=== PATIENT | male | born 1970 | race Caucasian/White ===

== ENCOUNTER → 2018-02-20 12:54 | Outpatient (CLI) | payer OTHER | END | disposition home or self-care (01) | LOC: D.RAD 12:54 | DX: Z02.71 Encounter for disability determination (principal) ==

== ENCOUNTER 2018-06-30 20:49 | Emergency (ER) | payer MEDICAID ==
[~2018-06-30] VITALS: Ht 182.9 cm; Wt 79.5 kg
[2018-06-30 20:55] VITALS: Ht 182.9 cm; Wt 79.5 kg
[2018-06-30 21:15] LABS: BASOPHILS 0.1 % (0-2); EOSINOPHILS 0.3 % (0-7); HEMATOCRIT 36.6 % (42.0-54.0); HEMOGLOBIN 12.7 g/dL (13.5-17.5); IMMATURE GRANULOCYTES 0.1 % (0-5); LYMPHOCYTES 9.3 % (15-50); MCH 31.3 pg (26.0-34.0); MCHC 34.7 g/dL (31.0-37.0); MCV 90.1 fL (80.0-100.0); MEAN PLATELET VOLUME 9.6 fL (7.4-10.4); MONOCYTES 5.4 % (2-11); NEUTROPHILS 84.8 % (40-80); PLATELET COUNT 272 10x3/uL (130-400); RBC 4.06 10x6/uL (4.20-6.10); RDW 12.8 % (11.5-14.5); WBC 13.9 10x3/uL (4.8-10.8)
[2018-06-30 21:32] LABS: APTT 22.6 SECONDS (22.8-39.4)
[2018-06-30 21:33] LABS: D-DIMER-QUANTITATIVE 0.34 ug/mLFEU (0.20-0.54)
[2018-06-30 21:35] LABS: ALBUMIN 3.4 g/dL (3.4-5.0); ALKALINE PHOSPHATASE 84 U/L (46-116); ALT (SGPT) 28 U/L (10-68); BILIRUBIN - TOTAL 0.31 mg/dL (0.2-1.3); CALC OSMOLALITY 284 mosm/kg (275-300); CALCIUM 9.1 mg/dL (8.5-10.1); CARBON DIOXIDE 30.1 mmol/L (21.0-32.0); CHLORIDE - SERUM 102 mmol/L (98-107); GLUCOSE 163 mg/dL (74-106); POTASSIUM - SERUM 3.4 mmol/L (3.5-5.1); PROTEIN - SERUM 6.5 g/dL (6.4-8.2); SODIUM 140 mmol/L (136-145); UREA NITROGEN 17 mg/dL (7-18); eGFR NON AFRICAN AMERICAN 85 mL/min (90-120)
[2018-06-30 21:46] LABS: CKMB 2.2 U/L (0.0-3.6); CREATINE KINASE 108 UL (21-232)
[2018-06-30 21:50] LABS: TROPONIN-I < 0.017 ng/mL (0.000-0.060)
[2018-06-30 22:21] LABS: APPEARANCE CLEAR (CLEAR); BILIRUBIN NEGATIVE (NEGATIVE); COLOR YELLOW (YELLOW); GLUCOSE NEGATIVE (NEGATIVE); KETONE NEGATIVE (NEGATIVE); NITRITE NEGATIVE (NEGATIVE); PROTEIN NEGATIVE (NEGATIVE); UROBILINOGEN NORMAL (NORMAL)
[2018-06-30 22:49] VITALS: BP 101/55
== END 2018-06-30 23:13 | disposition other institution (70) ==
LOC: D.ER 20:49
PROVIDERS: Family Medicine
DX: G40.89 Other seizures (principal); E87.6 Hypokalemia; R55 Syncope and collapse; E04.1 Nontoxic single thyroid nodule; F17.200 Nicotine dependence, unspecified, uncomplicated

== ENCOUNTER 2019-08-22 17:58 | Emergency (ER) | payer SELFPAY ==
[~2019-08-22] VITALS: Ht 182.9 cm; Wt 81.6 kg
[2019-08-22 18:03] VITALS: Ht 182.9 cm; Wt 81.6 kg
[2019-08-22 18:28] LABS: BASOPHILS 0.3 % (0-2); EOSINOPHILS 0.9 % (0-7); HEMATOCRIT 44.8 % (42.0-54.0); HEMOGLOBIN 15.2 g/dL (13.5-17.5); IMMATURE GRANULOCYTES 0.3 % (0-5); LYMPHOCYTES 14.7 % (15-50); MCH 30.8 pg (26.0-34.0); MCHC 33.9 g/dL (31.0-37.0); MCV 90.7 fL (80.0-100.0); MEAN PLATELET VOLUME 9.1 fL (7.4-10.4); MONOCYTES 4.3 % (2-11); NEUTROPHILS 79.5 % (40-80); RBC 4.94 10x6/uL (4.20-6.10); RDW 13.5 % (11.5-14.5); WBC 11.9 10x3/uL (4.8-10.8)
[2019-08-22 18:30] LABS: PLATELET COUNT 352 10x3/uL (130-400)
[2019-08-22 18:31] LABS: APPEARANCE CLEAR (CLEAR); BILIRUBIN NEGATIVE (NEGATIVE); COLOR YELLOW (YELLOW); GLUCOSE 50 mg/dL (NEGATIVE); KETONE NEGATIVE (NEGATIVE); NITRITE NEGATIVE (NEGATIVE); PROTEIN NEGATIVE (NEGATIVE); UROBILINOGEN NORMAL (NORMAL)
[2019-08-22 18:36] LABS: CALC OSMOLALITY 283 mosm/kg (275-300); CALCIUM 8.6 mg/dL (8.5-10.1); CARBON DIOXIDE 30.3 mmol/L (21.0-32.0); CHLORIDE - SERUM 104 mmol/L (98-107); GLUCOSE 132 mg/dL (74-106); POTASSIUM - SERUM 3.8 mmol/L (3.5-5.1); SODIUM 140 mmol/L (136-145); UREA NITROGEN 20 mg/dL (7-18); eGFR NON AFRICAN AMERICAN 85 mL/min (90-120)
[2019-08-22 18:39] LABS: ALBUMIN 3.5 g/dL (3.4-5.0); ALKALINE PHOSPHATASE 69 U/L (30-120); ALT (SGPT) 22 U/L (10-68); BILIRUBIN - TOTAL 0.25 mg/dL (0.2-1.3); PROTEIN - SERUM 6.7 g/dL (6.4-8.2)
[2019-08-22] MEDS ORDERED: HYDROCODON-ACE1 EAC7 PO (19:42)
[2019-08-22 20:35] VITALS: BP 133/87
== END 2019-08-22 20:35 | disposition home or self-care (01) ==
LOC: D.ER 17:58
PROVIDERS: Family Medicine
DX: R10.9 Unspecified abdominal pain (principal); R73.9 Hyperglycemia, unspecified; D72.829 Elevated white blood cell count, unspecified; Z72.0 Tobacco use

== ENCOUNTER 2019-11-08 09:17 | Emergency (ER) | payer MEDICAID ==
[~2019-11-08] VITALS: Ht 182.9 cm; Wt 79.5 kg
[~2019-11-08 09:17] MED LIST: HYDROCODON-ACE1 EAC7 PO
[2019-11-08 09:26] VITALS: Ht 182.9 cm; Wt 79.5 kg
[2019-11-08 09:46] LABS: BASOPHILS 0.5 % (0-2); EOSINOPHILS 1.3 % (0-7); HEMATOCRIT 47.2 % (42.0-54.0); HEMOGLOBIN 15.8 g/dL (13.5-17.5); IMMATURE GRANULOCYTES 0.4 % (0-5); LYMPHOCYTES 23.4 % (15-50); MCHC 33.5 g/dL (31.0-37.0); MCV 92.5 fL (80.0-100.0); MEAN PLATELET VOLUME 9.5 fL (7.4-10.4); MONOCYTES 6.6 % (2-11); NEUTROPHILS 67.8 % (40-80); PLATELET COUNT 353 10x3/uL (130-400); RDW 12.6 % (11.5-14.5); WBC 7.6 10x3/uL (4.8-10.8)
[2019-11-08 09:47] LABS: BILIRUBIN NEGATIVE (NEGATIVE); GLUCOSE NEGATIVE (NEGATIVE); KETONE NEGATIVE (NEGATIVE); NITRITE NEGATIVE (NEGATIVE); UROBILINOGEN NORMAL (NORMAL)
[2019-11-08 09:53] LABS: ANION GAP 10.8 mmol/L (8-16); CALCIUM 8.5 mg/dL (8.5-10.1); CARBON DIOXIDE 30.3 mmol/L (21.0-32.0); CREATININE - SERUM 1.4 mg/dL (0.6-1.3); POTASSIUM - SERUM 4.1 mmol/L (3.5-5.1)
[2019-11-08 09:59] LABS: ALBUMIN 3.6 g/dL (3.4-5.0); BILIRUBIN - TOTAL 0.26 mg/dL (0.2-1.3); PROTEIN - SERUM 6.7 g/dL (6.4-8.2)
[2019-11-08] MEDS ORDERED: HYDROCODON-ACE1 EAC2 PO (10:34)
[2019-11-08 10:55] VITALS: BP 136/80
== END 2019-11-08 10:55 | disposition home or self-care (01) ==
LOC: D.ER 09:17
PROVIDERS: Emergency Medicine
DX: N20.0 Calculus of kidney (principal)

== ENCOUNTER 2019-12-14 11:22 | Emergency (ER) | payer MEDICAID ==
[~2019-12-14] VITALS: Ht 182.9 cm; Wt 84.1 kg
[~2019-12-14 11:22] MED LIST changes: +HYDROCODON-ACE1 EAC2 PO
[2019-12-14 11:34] VITALS: BP 142/114; Ht 182.9 cm; Wt 84.1 kg
[2019-12-14 12:06] LABS: BASOPHILS 0.4 % (0-2); EOSINOPHILS 0.6 % (0-7); HEMATOCRIT 45.2 % (42.0-54.0); HEMOGLOBIN 15.3 g/dL (13.5-17.5); IMMATURE GRANULOCYTES 0.1 % (0-5); LYMPHOCYTES 17.8 % (15-50); MCH 30.4 pg (26.0-34.0); MCHC 33.8 g/dL (31.0-37.0); MCV 89.7 fL (80.0-100.0); MEAN PLATELET VOLUME 9.4 fL (7.4-10.4); MONOCYTES 8.5 % (2-11); NEUTROPHILS 72.6 % (40-80); RBC 5.04 10x6/uL (4.20-6.10); RDW 12.2 % (11.5-14.5); WBC 8.5 10x3/uL (4.8-10.8)
[2019-12-14 12:18] LABS: PLATELET COUNT 443 10x3/uL (130-400)
[2019-12-14 12:21] LABS: CALC OSMOLALITY 282 mosm/kg (275-300); CALCIUM 9.7 mg/dL (8.5-10.1); CARBON DIOXIDE 25.7 mmol/L (21.0-32.0); CHLORIDE - SERUM 106 mmol/L (98-107); CREATININE - SERUM 1.1 mg/dL (0.6-1.3); GLUCOSE 109 mg/dL (74-106); POTASSIUM - SERUM 4.1 mmol/L (3.5-5.1); SODIUM 141 mmol/L (136-145); UREA NITROGEN 15 mg/dL (7-18); eGFR NON AFRICAN AMERICAN 76 mL/min (90-120)
[2019-12-14 12:28] LABS: ALBUMIN 4.3 g/dL (3.4-5.0); ALKALINE PHOSPHATASE 87 U/L (30-120); ALT (SGPT) 26 U/L (10-68); MAGNESIUM - SERUM 2.1 mg/dL (1.8-2.4); PROTEIN - SERUM 7.5 g/dL (6.4-8.2)
[2019-12-14 12:45] LABS: BILIRUBIN NEGATIVE (NEGATIVE); EPITHELIAL CELLS 0-5 /hpf (0-5); GLUCOSE NEGATIVE (NEGATIVE); KETONE NEGATIVE (NEGATIVE); NITRITE NEGATIVE (NEGATIVE); RED CELLS - URINE 0-5 /hpf (0-5); SPECIFIC GRAVITY 1.005 (1.005-1.020); WHITE CELLS - URINE 0-5 /hpf (NEGATIVE)
[2019-12-14 12:46] LABS: BACTERIA FEW /hpf (NEGATIVE)
[2019-12-14 12:51] LABS: UDS - AMPHET POSITIVE QUAL (NEGATIVE); UDS - BARB NEGATIVE QUAL (NEGATIVE); UDS - BENZO NEGATIVE QUAL (NEGATIVE); UDS - COCAINE NEGATIVE QUAL (NEGATIVE); UDS - OPIATE NEGATIVE QUAL (NEGATIVE); UDS - PCP NEGATIVE QUAL (NEGATIVE); UDS - THC POSITIVE QUAL (NEGATIVE)
--- NOTE | 2019-12-14 13:54 | NUR ---
DR GABRIEL NOTIFIED AND REVIEWED PT'S BEHAVIOR AND ASSESSMENT. PT IS A LOW RISK. RESOURCES GIVEN AND HE VERBALIZES UNDERSTANDING.
--- NOTE | 2019-12-14 14:13 | NUR ---
DR GABRIEL NOTIFIED AND REVIEWED PT'S BEHAVIOR AND ASSESSMENT RESULTS. PT IS A MODERATE RISK. SITTER ORDERED AND AT BEDSIDE. SAFETY PLAN INITIATED. RESOURCES GIVEN AND HE VERBALIZES UNDERSTANDING.
== END 2019-12-14 17:01 ==
LOC: D.ER 11:22
PROVIDERS: Family Medicine
DX: R45.851 Suicidal ideations (principal)

== ENCOUNTER 2020-11-22 21:16 | Emergency (ER) | payer OTHER ==
[~2020-11-22] VITALS: Ht 182.9 cm; Wt 84.1 kg
[2020-11-22 21:51] VITALS: Ht 182.9 cm; Wt 84.1 kg
[2020-11-22] MEDS ORDERED: HYDROCODON-ACE1 EAC7 PO (22:31)
[2020-11-22] MEDS ORDERED: CLINDAMYCIN HC300 MG PO (22:31)
[2020-11-22 22:48] VITALS: BP 114/67
== END 2020-11-22 22:48 | disposition home or self-care (01) ==
LOC: D.ER 21:16
DX: K04.7 Periapical abscess without sinus (principal); K02.9 Dental caries, unspecified; S02.5XXA Fracture of tooth (traumatic), initial encounter for closed fracture

== ENCOUNTER 2020-12-28 07:07 | Emergency (ER) | payer OTHER ==
[~2020-12-28] VITALS: Ht 182.9 cm; Wt 84.1 kg
[~2020-12-28 07:07] MED LIST changes: +CLINDAMYCIN HC300 MG PO
[2020-12-28 07:39] VITALS: BP 127/88; Ht 182.9 cm; Wt 84.1 kg
[2020-12-28 08:24] LABS: BASOPHILS 0.8 % (0-2); EOSINOPHILS 2.2 % (0-7); HEMATOCRIT 38.6 % (42.0-54.0); HEMOGLOBIN 13.1 g/dL (13.5-17.5); MCH 30.7 pg (26.0-34.0); MCHC 33.9 g/dL (31.0-37.0); MCV 90.3 fL (80.0-100.0); MEAN PLATELET VOLUME 8.1 fL (7.4-10.4); MONOCYTES 10.2 % (2-11); NEUTROPHILS 63.8 % (40-80); RBC 4.27 10x6/uL (4.20-6.10); RDW 13.2 % (11.5-14.5)
[2020-12-28 08:27] LABS: PLATELET COUNT 316 10x3/uL (130-400)
[2020-12-28 08:41] LABS: CALC OSMOLALITY 282 mosm/kg (275-300); CALCIUM 8.5 mg/dL (8.5-10.1); CHLORIDE - SERUM 107 mmol/L (98-107); CREATININE - SERUM 0.8 mg/dL (0.6-1.3); GLUCOSE 116 mg/dL (74-106); POTASSIUM - SERUM 3.7 mmol/L (3.5-5.1); SODIUM 140 mmol/L (136-145); UREA NITROGEN 20 mg/dL (7-18); eGFR NON AFRICAN AMERICAN > 90 mL/min (90-120)
[2020-12-28] MEDS ORDERED: ZITHROMAX250 MG PO (08:44)
[2020-12-28] MEDS ORDERED: IPRATROPIUM BRO15 M1 NASAL (08:45)
[2020-12-28] MEDS ORDERED: ACETAMINOPHEN500 M1 PO (08:45)
[2020-12-28] MEDS ORDERED: FLORASTOR250 MG PO (08:45)
[2020-12-28] MEDS ORDERED: CYCLOBENZAPRINE10 MG PO (08:45)
[2020-12-28] MEDS ORDERED: IBUPROFEN800 MG PO (08:45)
[2020-12-28 08:47] LABS: ALBUMIN 3.1 g/dL (3.4-5.0); ALKALINE PHOSPHATASE 118 U/L (30-120); ALT (SGPT) 20 U/L (10-68); PROTEIN - SERUM 5.9 g/dL (6.4-8.2)
== END 2020-12-28 09:44 | disposition home or self-care (01) ==
LOC: D.ER 07:07
PROVIDERS: Family Medicine
DX: R51.9 Headache, unspecified (principal); J32.9 Chronic sinusitis, unspecified; D72.829 Elevated white blood cell count, unspecified